=== PATIENT | female | born 1980 | race Asian ===

== ENCOUNTER 2020-05-15 03:36 | Inpatient (IN) | payer OTHER, SELFPAY ==
[~2020-05-15] VITALS: Ht 157.5 cm; Wt 89.1 kg
[2020-05-15 03:41] VITALS: Ht 157.5 cm; Wt 89.1 kg
[2020-05-15 04:50] LABS: BASOPHIL % 0.1 % (0-2); PLATELET COUNT 158 x10^3mcL (130-400)
[2020-05-15 04:57] LABS: CALCIUM 8.1 mg/dL (8.5-10.1); CHLORIDE SERUM 98 mmol/L (98-107); CREATININE SERUM 0.9 mg/dL (0.6-1.0); GFR1 > 60 mL/min; GLUCOSE SERUM 148 mg/dL (74-106); POTASSIUM SERUM 3.2 mmol/L (3.5-5.1); RED CELL DISTRIBUTION WIDTH 15.2 % (11.5-14.5); SODIUM SERUM 134 mmol/L (136-145)
[2020-05-15 05:03] LABS: ALBUMIN 3.5 g/dL (3.4-5.0); ALKALINE PHOSPHATASE 76 U/L (46-116); ALT/SGPT 63 U/L (14-59); AST/SGOT 86 U/L (15-37); BILIRUBIN TOTAL 0.7 mg/dL (0.20-1.00); LACTIC DEHYDROGENASE (LDH) 413 U/L (100-190)
[2020-05-15 05:05] LABS: C REACTIVE PROTEIN 15.5 mg/dL (<=0.9)
--- NOTE | 2020-05-15 05:40 | NUR ---
2450 pt presents to room 12 with covid sx. P HAS A HISTORY OF 12 DAYS HACKING COUGH AND FEVER. SHE SAID SHE HAD SHORTNESS OF BREATH, BUT NONE NOTED ON ADMISSION. PT STATES THE FEVER HAS PRESISTED FOR 10 DAYS. TYMPANIC TEMP 106.1. ORAL TEMP 102.6 AND RECDFTAL TEMP 104.4. PT WAS GIVEN 1000MG OF TYLENOL AND MOTRIN. SHE IS PACKED IN ICE. NS BOLUS INFUSING AND ZOSYN. PT,S LIPS ARE CAKED WITH WHITE DRYNESS AND CRACKED. HE IS NOTICEABLY FRIGHTEN. SHE CALLED HER AND HE ALSO SOUNDED FRIGHTEN. HE TOLD HIS 'MASHA HAVE TO GET BETTER".
[2020-05-15 06:19] LABS: microscopic required? NO
--- NOTE | 2020-05-15 06:20 | NUR ---
FRESH ICE PAKS APPLIED AND PT 'S TEMP IS NOW 102.2 RECTALLY. PT DID VOID ON THE BEDPAN AND WET THE SHEET. SHE WAS CLEANED UP AND FRESH SHEET APPLIED. DR. SHARPE CAME IN AND INFORMED PT SHE WAS GOING TO BE ADMITTED BECAUSE SHE HAD A BAD PNEUMONIA. SHE CALLED HER .
--- NOTE | 2020-05-15 07:20 | NUR ---
RECIEVED REPORT FORM ANAIS PHILIP. I WILL ASSUME FURTHER CARE OF THIS PATIENT.
--- NOTE | 2020-05-15 07:40 | NUR ---
PT SITTING IN POSITION OF COMFORT IN [facility]. PT IS AAOX4, NO DISTRESS NOTED, RESP E/U, DRY COUGH NOTED, SKIN PINK WARM AND DRY. COOLING MEASURES IN PLACED. PT IN GOWN ONLY. PT IN 4L VIA NC, SPO2@ 96 AT THIS TIME. PT ON FULL CM, WILL CONT TO MONITOR.
[2020-05-15 08:27] LABS: CHOLESTEROL/HDL RATIO 4.1
--- NOTE | 2020-05-15 09:00 | NUR ---
PT GIVEN BREAKFAST TRAY BY EMT
--- NOTE | 2020-05-15 10:10 | NUR ---
MEDICATED PT PER MD ORDER. SEE EMAR. PT VEBRALIZED UNDERSTANDING OF MEDICATION TEACHING. PT IN POSITION OF COMFORT, NO DISTRESS NOTED, PT GIVEN A SHEET FOR COMFORT. WILL CONT TO MONITOR.
[2020-05-15 11:18] LABS: UA SPECIFIC GRAVITY <=1.005 (1.005-1.035); urine erythrocyte NEGATIVE (NEGATIVE)
[2020-05-15 11:38] LABS: AMPHETAMINE QUAL UR NONE DETECTED (See below)
--- NOTE | 2020-05-15 12:14 | NUR ---
REPORT GIVEN TO ALINE PHILIP ON TELE UNIT WHO WILL ASSUME FURTHER CARE OF THIS PATIENT. PT TO BE BROUGHT UP AT 12:30. RN AWARE.
--- NOTE | 2020-05-15 13:25 | NUR ---
RECEIVED PT FROM ED WITH CC SOB, COUGH, AND FEVER. PER PT, HER CO-WORKER TESTED POSITIVE FOR COVID LAST WEEK. PT IS AAOX4. RESP EVEN AND UNLABORED ON 2L NC, O2 SAT 95%. DRY COUGH. SR ON TELE MONITOR. DENIES CP OR PRESSURE. IV WITH NO REDNESS OR SWELLING. AMBULATORY. PULSES PALPABLE ON ALL EXTREMITIES. REPORTS MILD LOSS OF SENSE OF SMELL AND LOSS OF TASTE. ORIENTED TO ROOM AND SURROUNDINGS. BED IN LOW POSITION, CALL LIGHT WITHIN REACH. WILL CONTINUE TO MONITOR.
[2020-05-15 13:36] VITALS: BP 106/56
[2020-05-15 16:59] VITALS: BP 105/65
--- NOTE | 2020-05-15 18:45 | NUR ---
PT RESTING IN BED. NO ACUTE DISTRESS. RESP EVEN AND UNLABORED ON RA. O2 SAT 91-93%. DRY COUGH. IV WITH NO REDNESS OR SWELLING. HOB ELEVATED. AMBULATORY. BED IN LOW POSITION, CALL LIGHT WITHIN REACH. WILL ENDORSE TO ONCOMING SHIFT.
--- NOTE | 2020-05-15 19:35 | NUR ---
PT IN NO ACUTE DISTRESS. RESTING IN BED. BREATHING EVEN AND UNLABORED ON RA. O2 SAT 90-93%. DRY COUGH. SR/ST ON TELE MONITOR. DENIES PAIN. IV WITH NO REDNESS OR SWELLING. CALL LIGHT WITHIN REACH. BED IN LOW POSITION. WILL CONTINUE TO MONITOR.
[2020-05-15 21:49] VITALS: BP 112/57
--- NOTE | 2020-05-15 22:30 | NUR ---
PT REQUESTING COUGH AND SLEEP MEDICINE. DR. BHATIA MADE AWARE. NO NEW ORDERS AT THIS TIME. WILL CONTINUE TO MONITOR.
--- NOTE | 2020-05-16 02:07 | NUR ---
PT IN NO ACUTE DISTRESS. SLEEPING BUT EASILY AROUSABLE. BREATHING EVEN AND UNALBORED ON RA. IV WITH NO REDNESS OR SWELLING. CALL LIGHT WITHIN REACH. DROPLET/CONTACT ISOLATION. WILL CONTINUE TO MONITOR.
--- NOTE | 2020-05-16 03:08 | NUR ---
REPORT GIVEN TO BRANDI PHILIP. PT IN NO ACUTE DISTRESS. SLEEPING BUT EASILY AROUSABLE. BREATHING EVEN AND UNLABORED ON RA. IV WITH NO REDNESS OR SWELLING. DROPLET/CONTACT ISOLATION. CALL LIGHT WITHIN REACH.
--- NOTE | 2020-05-16 03:11 | NUR ---
REPORT GIVEN TO INGE PHILIP. PT IN NO ACUTE DISTRESS. SLEEPING BUT EASILY AROUSABLE. BREATHING EVEN AND UNLABORED ON RA. IV WITH NO REDNESS OR SWELLING. DROPLET/CONTACT ISOLATION. CALL LIGHT WITHIN REACH.
[2020-05-16 06:02] VITALS: BP 109/55
--- NOTE | 2020-05-16 07:02 | NUR ---
PT RESTING IN BED. RR EVEN AND UNLABORED. A&O X4. NO ADN. BED LOCKED AND LOWERED. CALL LIGHT WITHIN REACH. WILL ENDORSE TO DAY SHIFT NURSE.
--- NOTE | 2020-05-16 07:10 | NUR ---
REC'VD PT FROM NIGHT RN. PT RESTING IN BED, AAOX4. RES E/U, DENIES SOB ON RA. C/O DRY COUGH. TELE MONITOR 52 SHOWING SR. IV SITE TO MATI MORSE, ELIZABETH AND PATENT. NO ACUTE DISTRESS NOTED. DENIES PAIN/DISCOMFORT AT THIS TIME. ENCOURAGE PT TO PRONE TOLERATED
[2020-05-16 07:31] LABS: ALBUMIN 2.9 g/dL (3.4-5.0); ALKALINE PHOSPHATASE 64 U/L (46-116); ALT/SGPT 49 U/L (14-59); AST/SGOT 41 U/L (15-37); BILIRUBIN TOTAL 0.38 mg/dL (0.20-1.00); CALCIUM 8.5 mg/dL (8.5-10.1); CARBON DIOXIDE 27.7 mmol/L (21-32); CHLORIDE SERUM 105 mmol/L (98-107); CREATININE SERUM 0.8 mg/dL (0.6-1.0); GFR1 > 60 mL/min; GLUCOSE SERUM 87 mg/dL (74-106); POTASSIUM SERUM 3.9 mmol/L (3.5-5.1); SODIUM SERUM 142 mmol/L (136-145); TOTAL PROTEIN, SERUM 5.9 g/dL (6.4-8.2)
[2020-05-16 09:11] VITALS: BP 106/44
[2020-05-16 09:14] LABS: PLATELET COUNT 164 x10^3mcL (130-400)
[2020-05-16 09:32] LABS: RED CELL DISTRIBUTION WIDTH 14.7 % (11.5-14.5)
[2020-05-16 12:38] VITALS: BP 91/44
--- NOTE | 2020-05-16 14:38 | NUR ---
PT C/O COUGH AND PLEURITIC CHEST PAIN, GIVEN TESSALON PERLES PER EMAR
--- NOTE | 2020-05-16 14:51 | NUR ---
PT SIGNED CONSENT FOR CONVALESCENT PLASMA, AND CONSENT PLACED IN CHART. ALL QUESTIONS AND CONCERNS ADDRESSED.
[2020-05-16 14:52] LABS: rbc morphology (normal/abnorm) NORMAL (NORMAL)
[2020-05-16 14:54] LABS: MONOCYTE 8 % (0-7); SEGMENTED NEUTROPHILS 67 % (37-75)
--- NOTE | 2020-05-16 18:59 | NUR ---
PT RESTING IN BED USING PERSONAL PHONE. NO ACUTE DISTRESS NOTED. NO SIGNIFICANT CHANGES NOTED. RES E/U ON RA. REMDESIVIR INFUSING TO RHAND WITH NO S/S OF INFILTRATION NOTED. WILL ENDORSE CARE TO NEXT SHIFT
[2020-05-16 19:30] VITALS: BP 99/45
--- NOTE | 2020-05-16 19:50 | NUR ---
PT. AWAKE, ALERT, SITTING UP IN BED. BREATH SOUNDS CLEAR THROUGHOUT LUNG BROWN, RESP. EVEN, UNLABORED. PT. ON RA. DENIES FEELING SOB. PT. STATED THAT SHE GETS A LITTLE SOB WHEN SHE IS COUGHOING. COUGH IS DRY AND NON-PRODUCTIVE. O2 SAT. 92%. NSR ON MONITOR. NO C/O CHESTPAIN. PEDAL PULSES STRONG BLE. NO EDEMA. ABD. SOFT AND ROUND, BOWEL SOUNDS ACTIVE. DENIES ABD. PAIN OR NAUSEA. IV SITE PATENT, HEPLOCKED. CALL LIGHT WITHIN REACH.
[2020-05-16 21:15] VITALS: BP 104/47
--- NOTE | 2020-05-16 23:30 | NUR ---
PT. C/O HEADACHE. PRN TYLENOL WAS GIVEN. WILL MONITOR.
--- NOTE | 2020-05-17 03:24 | NUR ---
PT. AWAKENED BY IV PUMP BEEPING. PT. AWAKENES EASILY. STATED THAT SHE COULD NOT GO BACK TO SLEEP AND REQUESTIN SLEEPING PILL. PT. MADE AWARE THAT IT WAS TOO LATE FOR SLEEPING AID AT THIS TIME PER HOSPITAL PROTOCOL.
--- NOTE | 2020-05-17 06:25 | NUR ---
PT. DOZING INTERMITTENTLY. IV SITE REMAINS HEPLOCKED, PATENT. NSR ON MONITOR. MINIMAL COUGHING THIS MORNING. NO SOB NOTED AT THIS TIME. CALL LIGHT WITHIN REACH. WILL ENDORSE PT. CARE TO INCOMING NURSE.
[2020-05-17 06:32] VITALS: BP 93/50
--- NOTE | 2020-05-17 07:15 | NUR ---
REC'VD PT FROM NIGHT RN. PT RESTING IN BED WITH EYES CLOSED BUT EASILY AROUSABLE. AAOX4. RES E/U, DENIES SOB ON RA. ALTHOUGH C/O COUGH AND PLEURITIC CHEST PAIN WHILE COUGHING. OTHERWISE, VSS. TELE MONITOR 52 SHOWING SR. IV SITE TO R HAND SL WITH NO S/S OF INFILTRATION NOTED. NO ACUTE DISTRESS NOTED. DENIES PAIN/DISCOMFORT AT THIS TIME
[2020-05-17 07:59] LABS: ALKALINE PHOSPHATASE 58 U/L (46-116); ALT/SGPT 38 U/L (14-59); AST/SGOT 44 U/L (15-37); BILIRUBIN TOTAL 0.3 mg/dL (0.20-1.00); C REACTIVE PROTEIN 3.4 mg/dL (<=0.9); CALCIUM 8.4 mg/dL (8.5-10.1); CARBON DIOXIDE 26.8 mmol/L (21-32); CHLORIDE SERUM 105 mmol/L (98-107); CREATININE SERUM 0.7 mg/dL (0.6-1.0); GFR1 > 60 mL/min; GLUCOSE SERUM 88 mg/dL (74-106); MAGNESIUM 2.1 mg/dL (1.8-2.4); PHOSPHOROUS 3.5 mg/dL (2.5-4.9); POTASSIUM SERUM 3.6 mmol/L (3.5-5.1); SODIUM SERUM 143 mmol/L (136-145)
[2020-05-17 08:07] LABS: ALBUMIN 2.9 g/dL (3.4-5.0); TOTAL PROTEIN, SERUM 5.9 g/dL (6.4-8.2)
[2020-05-17] MEDS ORDERED: MUCINEX600 MG PO (09:10)
[2020-05-17] MEDS ORDERED: VENTOLIN H0.09 MG/A1 INH (09:10)
[2020-05-17] MEDS ORDERED: DECADRON6 MG PO (09:11)
[2020-05-17] MEDS ORDERED: MEDI-FIRST ASP325 MG PO (09:12)
[2020-05-17 09:28] VITALS: BP 105/49
[2020-05-17 10:47] LABS: PLATELET COUNT 172 x10^3mcL (179-408)
[2020-05-17 10:53] LABS: RED CELL DISTRIBUTION WIDTH 15.4 % (12.3-17.7)
[2020-05-17 11:04] VITALS: BP 105/49
[2020-05-17 11:41] LABS: BAND NEUTROPHIL 4 % (0-10); MONOCYTE 11 % (0-7); SEGMENTED NEUTROPHILS 59 % (37-75); rbc morphology (normal/abnorm) NORMAL (NORMAL)
[2020-05-17 11:42] LABS: PLATELET MORPHOLOGY PLATELETS INCREASED
--- NOTE | 2020-05-17 12:00 | NUR ---
PRINTED AND EXPLAINED DISCHARGE INSTRUCTIONS TO PATIENT. DISCHARGE INSTRUCTIONS INCLUDE MEDICATIONS, PRESCRIPTIONS, FOLLOW UP WITH PCP, WORSENING SYMPTOMS, AND COVID INFORMATION. ALL NEEDS MET AND CONCERNS ADDRESSED. ID WRISTBAND REMOVED. TELE MONITOR REMOVED AND RETURNED TO TELE MONITOR ROOM. IV TO RHAND REMOVED AND IV CATHETER INTACT. PT TAKEN DOWN TO LOBBY VIA WHEELCHAIR ACCOMPANIED BY PICKER MACHINE OPERATOR. ALL BELONGINGS WITH PATIENT
== END 2020-05-17 12:00 | disposition home or self-care (01) | DRG 871 ==
LOC: ED 03:36 → DU 05:26
PROVIDERS: Emergency Medicine; Family Medicine; Internal Medicine Infectious Disease; ADMIT Internal Medicine; ATTEND Internal Medicine
PROC: XW033E5 Introduction of Remdesivir Anti-infective into Peripheral Vein, Percutaneous Approach, New Technology Group 5 (ICD-10-PCS; principal; 2020-05-16)
DX: A41.89 Other specified sepsis (principal); U07.1 COVID-19; J12.89 Other viral pneumonia; J96.01 Acute respiratory failure with hypoxia; E87.1 Hypo-osmolality and hyponatremia; E87.6 Hypokalemia; Z79.899 Other long term (current) drug therapy
CPT/HCPCS: 36600; 82962; 83880; 85378; 87804; G0378; J1100; J1644; J1956; J2543; J3480; J3535; J7040; J7050; U0003